=== PATIENT | male | born 1985 | race Caucasian/White ===

== ENCOUNTER 2018-01-01 23:49 | Emergency (ER) | payer MEDICAID ==
[2018-01-02] MEDS: DIPHTH/TET/ACEL PERTUSS (ADULT) 0.5 ML VIAL IM* (00:43)
== END 2018-01-02 02:28 | disposition home or self-care (01) ==
LOC: FTE 23:49
DX: S10.93XA Contusion of unspecified part of neck, initial encounter (principal); W22.8XXA Striking against or struck by other objects, initial encounter; Y92.89 Other specified places as the place of occurrence of the external cause; Z23 Encounter for immunization
CPT/HCPCS: 90471; 90715; 99283-25